=== PATIENT | male | born 1960 | race Caucasian/White ===

== ENCOUNTER 2018-07-18 15:18 | Emergency (ER) | payer SELFPAY ==
[2018-07-18 15:40] LABS: Absolute Lymphocytes (CBC) 0.6 K/uL (0.7-4.9); Absolute Monocytes 1.1 K/uL (0.1-1.3); Absolute Neutrophil 11.9 K/uL (1.8-8.0); Basophils % 0.2 % (0-1.3); Hematocrit 50.7 % (39.6-49.0); Lymphocytes % 4.7 % (15.3-44.8); MPV 9.1 fL (7.6-11.3); Monocytes % 8.2 % (3.3-12.3); RBC Red Blood Cell Count 5.02 M/uL (4.33-5.43)
[2018-07-18] MEDS ORDERED: NA CHLORIDE 0.9% 1,000 ML ONE ×2 (15:44→16:37)
[2018-07-18 15:58] LABS: Potassium 4.2 mmol/L (3.5-5.1)
--- NOTE | 2018-07-18 16:16 | RAD REPORT ---
EXAM DESCRIPTION: CT - Head Brain Wo Cont - 07/18/2018 3:56 pm CLINICAL HISTORY: Alteration of awareness/confusion COMPARISON: None TECHNIQUE: Computed axial tomography of the head was obtained. IV contrast was not requested. All CT scans are performed using dose optimization technique as appropriate and may include automated exposure control or mA/KV adjustment according to patient size. FINDINGS: An intracranial bleed is not seen . The ventricles are normal in caliber. 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 No extra-axial fluid collection is noted. Mild low-density areas within periventricular, deep and sub cortical white matter likely represent ischemic changes secondary to small vessel disease. Fluid within the sinuses/ mastoids is not seen. IMPRESSION: No acute intracranial abnormality is seen. If patient's symptoms persist MRI of the bra in would be recommended.
--- NOTE | 2018-07-18 17:54 | ER ---
Nurse's Notes [facility] Name: Abner Black Age: 57 yrs Sex: Male : 1960 Arrival Date: 07/18/2018 Time: 15:19 Bed 3 Private MD: Diagnosis: Heat exhaustion, unspecified;Dehydration Presentation: 07/18 15:20 Presenting complaint: EMS states: Altered mental status after offshore fishing for hb approx 7 hrs in the heat with minimal oral intake. On scene AOx1, SBP 110s, HT002q, BGL 79. Transition of care: patient was not received from another setting of care. Onset of symptoms was July 18, 2018. Risk Assessment: Do you want to hurt yourself or someone else? Patient reports no desire to harm self or others. Initial Sepsis Screen: Does the patient meet any 2 criteria? No. Patient's initial sepsis screen is negative. Does the patient have a suspected source of infection? No. Patient's initial sepsis screen is negative. Care prior to arrival: ice packs to axilla, groin, back of neck. 15:20 Method Of Arrival: EMS: [facility] hb 15:20 Acuity: BLAKE 2 hb Historical: - Allergies: 15:22 SHELLFISH; hb - Home Meds: 15:22 None [Active]; hb - PMHx: 15:22 None; hb - PSHx: 15:22 None; hb - Immunization history:: Adult Immunizations up to date. - Social history:: Smoking status: Patient uses tobacco products, denies chronic smoking, but will smoke occasionally. - Ebola Screening: : No symptoms or risks identified at this time. - Family history:: not pertinent. - Hospitalizations: : No recent hospitalization is reported. Screenin:35 Abuse screen: Denies threats or abuse. Denies injuries from another. Nutritional hb screening: No deficits noted. Tuberculosis screening: No symptoms or risk factors identified. Fall Risk Total Murphy Fall Scale indicates High Risk Score (45 or more points). Fall prevention measures have been instituted. Side Rails Up X 2 Frequent Obs/Assessments Occuring As available patient and family educated on Fall Prevention Program and Strategies. Assessment: 15:30 General: Appears in no apparent distress. Behavior is calm, cooperative. Pain: Denies hb pain. Neuro: Level of Consciousness is awake, alert, obeys commands, confused, Oriented to person, place. Cardiovascular: Heart tones S1 S2 present Capillary refill < 3 seconds Patient's skin is warm and dry. Respiratory: Airway is patent Respiratory effort is even, unlabored, Respiratory pattern is regular, symmetrical, Breath sounds are clear bilaterally. GI: No signs and/or symptoms were reported involving the gastrointestinal system. : No signs and/or symptoms were reported regarding the genitourinary system. EENT: No signs and/or symptoms were reported regarding the EENT system. Derm: Skin is intact, is healthy with good turgor, Skin is pink, warm \T\ dry. Musculoskeletal: No signs and/or symptoms reported regarding the musculoskeletal system. 16:30 Reassessment: Patient appears in no apparent distress at this time. No changes from previously documented assessment. Patient and/or family updated on plan of care and expected duration. Pain level reassessed. 17:30 Reassessment: Patient appears in no apparent distress at this time. Patient and/or hb family updated on plan of care and expected duration. Pain level reassessed. Patient is alert, oriented x 3, equal unlabored respirations, skin warm/dry/pink. Patient states symptoms have improved. Vital Signs: 15:22 BP 139 / 95; Pulse 98; Resp 17; Temp 98.2; Pulse Ox 100% on R/A; Weight 82.55 kg; hb Height 5 ft. 9 in. (175.26 cm); Pain 0/10; 16:30 BP 128 / 78; Pulse 82; Resp 14; Pulse Ox 100% on R/A; hb 17:30 BP 136 / 86; Pulse 88; Resp 15; Pulse Ox 100% on R/A; hb 15:22 Body Mass Index 26.88 (82.55 kg, 175.26 cm) ED Course: 15:15 Initial lab(s) drawn, by me, held in ED. Inserted saline lock: 20 gauge in right jp3 antecubital area, using aseptic technique. Blood collected. 15:19 Patient arrived in ED. hb 15:22 Triage completed. hb 15:22 Devang Bai MD is Attending Physician. rn 15:22 Arm band placed on right wrist. hb 15:30 Initial lab(s) drawn, by me, sent to lab. [facility] 15:30 Patient has correct armband on for positive identification. Placed in gown. Bed in low hb position. Call light in reach. Side rails up X 1. 15:31 Jayashree Ness, RN is Primary Nurse. hb 15:44 CK Sent. jp3 15:44 Basic Metabolic Panel Sent. jp3 15:44 CBC with Diff Sent. jp3 15:56 CT completed. Patient tolerated procedure well. Patient moved back from CT. mw3 15:56 CT Head Brain wo Cont In Process Unspecified. EDMS 18:06 No provider procedures requiring assistance completed. IV discontinued, intact, hb bleeding controlled, No redness/swelling at site. Pressure dressing applied. Administered Medications: 15:32 Drug: NS 0.9% 1000 ml Route: IV; Rate: 1000 ml; Site: right antecubital; hb 16:25 Follow up: Response: No adverse reaction; IV Status: Completed infusion; IV Intake: hb 1000ml 16:33 Drug: NS 0.9% 1000 ml Route: IV; Rate: 1000 ml; Site: right antecubital; rv 17:35 Follow up: Response: No adverse reaction; IV Status: Completed infusion; IV Intake: hb 1000ml Intake: 16:25 IV: 1000ml; Total: 1000ml. hb 17:35 IV: 1000ml; Total: 2000ml. hb Outcome: 17:53 Discharge ordered by . rn 18:06 Discharged to home ambulatory, with family. hb 18:06 Condition: stable 18:06 Discharge instructions given to patient, Instructed on discharge instructions, follow up and referral plans. Demonstrated understanding of instructions, follow-up care. 18:07 Patient left the ED. hb Signatures: Dispatcher [employer] EDRI Devang Bai MD MD rn Baxter, Heather, RN RN Kaylin Burt mw3 Casey German RN RN Delta Caicedo jp3
--- NOTE | 2018-07-18 17:54 | EDPHYS ---
Physician Documentation [facility] Name: Abner Black Age: 57 yrs Sex: Male : 1960 Arrival Date: 07/18/2018 Time: 15:19 Bed 3 Private MD: ED Physician Devang Bai HPI: 07/18 15:38 This 57 yrs old Male presents to ER via EMS with complaints of Heat Exposure, rn Altered Mental Status. 15:38 The patient presents with confusion, decreased mental status. Onset: The rn symptoms/episode began/occurred at an unknown time. Possible causes: heat. Associated signs and symptoms: Pertinent positives: confusion. Current symptoms: In the emergency department the patient's symptoms have improved, markedly. It is unknown whether or not the patient has had similar symptoms in the past. Patient states fishing on water for 8 hours, was drinking water but ran out, no food, people with him state that when coming back in patient became confused, not acting right, put him in shade and called 911, EMS put ice packs on him and he has slowly improved, they state much improved now compared to when they picked him up. Patient reports felt fine prior to fishing, no trauma, no pain currently. . Historical: - Allergies: 15:22 SHELLFISH; hb - Home Meds: 15:22 None [Active]; hb - PMHx: 15:22 None; hb - PSHx: 15:22 None; hb - Immunization history:: Adult Immunizations up to date. - Social history:: Smoking status: Patient uses tobacco products, denies chronic smoking, but will smoke occasionally. - Ebola Screening: : No symptoms or risks identified at this time. - Family history:: not pertinent. - Hospitalizations: : No recent hospitalization is reported. ROS: 15:38 Constitutional: Negative for fever, chills, and weight loss, Eyes: Negative for injury, rn pain, redness, and discharge, Neck: Negative for injury, pain, and swelling, Cardiovascular: Negative for chest pain, palpitations, and edema, Respiratory: Negative for shortness of breath, cough, wheezing, and pleuritic chest pain, Abdomen/GI: Negative for abdominal pain, nausea, vomiting, diarrhea, and constipation, MS/Extremity: Negative for injury and deformity, Skin: Negative for injury, rash, and discoloration, Neuro: Negative for headache, numbness, tingling, and seizure. Exam: 15:38 Constitutional: This is a well developed, well nourished patient who is awake, alert, rn and in no acute distress. Head/Face: Normocephalic, atraumatic. Flushed/sunburnt face. Eyes: Pupils equal round and reactive to light, extra-ocular motions intact. Lids and lashes normal. Conjunctiva and sclera are non-icteric and not injected. Cornea within normal limits. Periorbital areas with no swelling, redness, or edema. ENT: dry MM Neck: Trachea midline, no thyromegaly or masses palpated, and no cervical lymphadenopathy. Supple, full range of motion without nuchal rigidity, or vertebral point tenderness. No Meningismus. Cardiovascular: tachycardic, regular, no murmur Respiratory: Lungs have equal breath sounds bilaterally, faint wheezing (states smoker). No increased work of breathing, no retractions or nasal flaring. Speaking full sentences Abdomen/GI: soft, non-tender Back: No spinal tenderness. No costovertebral tenderness. Full range of motion. Skin: Warm, dry, and no evidence of cellulitis. MS/ Extremity: Pulses equal, no cyanosis. Neurovascular intact. Full, normal range of motion. Equal circumference. Neuro: Awake and alert, GCS 15, oriented to person, place, year but not month. Cranial nerves II-XII grossly intact. Motor strength 5/5 in all extremities. Sensory grossly intact. Cerebellar exam normal. Vital Signs: 15:22 BP 139 / 95; Pulse 98; Resp 17; Temp 98.2; Pulse Ox 100% on R/A; Weight 82.55 kg; hb Height 5 ft. 9 in. (175.26 cm); Pain 0/10; 16:30 BP 128 / 78; Pulse 82; Resp 14; Pulse Ox 100% on R/A; hb 17:30 BP 136 / 86; Pulse 88; Resp 15; Pulse Ox 100% on R/A; hb 15:22 Body Mass Index 26.88 (82.55 kg, 175.26 cm) hb MDM: 15:22 Patient medically screened. rn 17:51 Differential Diagnosis: electrolyte abnormality, hypoglycemia, volume depletion. Data rn reviewed: vital signs, nurses notes. 17:52 Counseling: I had a detailed discussion with the patient and/or guardian regarding: the rn historical points, exam findings, and any diagnostic results supporting the discharge/admit diagnosis, lab results, radiology results, the need for outpatient follow up, to return to the emergency department if symptoms worsen or persist or if there are any questions or concerns that arise at home. Response to treatment: the patient's symptoms have markedly improved after treatment, the patient's condition has returned to base line, the patient is now symptom free, patient is well hydrated. and as a result, I will discharge patient. Special discussion: I discussed with the patient/guardian in detail that at this point there is no indication for admission to the hospital. It is understood, however, that if the symptoms persist or worsen the patient needs to return immediately for re-evaluation. ED course: Back to baseline, much more alert, now oriented to place/time/month/date/person. Here talking to family. Back to normal. IMproved mentation, is ambulatory without assistance, and normal neuro exam when repeated. Normal ct head. . 07/18 15:23 Order name: CBC with Diff rn 07/18 15:23 Order name: Basic Metabolic Panel; Complete Time: 16:17 rn 08 15:23 Order name: CT Head Brain wo Cont; Complete Time: 16:17 rn 07/18 15:23 Order name: Urine Microscopic Only rn 07/18 15:23 Order name: CK; Complete Time: 16:17 rn 08 17:56 Order name: Urine Dipstick--Ancillary (enter results) eb 07/18 15:23 Order name: IV Start; Complete Time: 15:32 rn 08 15:23 Order name: Urine Dipstick-Ancillary (obtain specimen); Complete Time: 18:27 rn 08 15:23 Order name: EKG; Complete Time: 15:26 rn 08 15:23 Order name: EKG - Nurse/Tech; Complete Time: 15:44 rn Administered Medications: 15:32 Drug: NS 0.9% 1000 ml Route: IV; Rate: 1000 ml; Site: right antecubital; hb 16:25 Follow up: Response: No adverse reaction; IV Status: Completed infusion; IV Intake: hb 1000ml 16:33 Drug: NS 0.9% 1000 ml Route: IV; Rate: 1000 ml; Site: right antecubital; rv 17:35 Follow up: Response: No adverse reaction; IV Status: Completed infusion; IV Intake: hb 1000ml Disposition: 07/18/18 17:53 Discharged to Home. Impression: Heat exhaustion, unspecified, Dehydration. - Condition is Stable. - Discharge Instructions: Dehydration, Adult, Heat Exhaustion Information. - Medication Reconciliation Form, Thank You Letter, Antibiotic Education, Prescription Opioid Use form. - Follow up: Private Physician; When: As needed; Reason: Recheck today's complaints, Re-evaluation by your physician. - Problem is new. - Symptoms have improved. Signatures: Dispatcher [employer] EDMS Devang Bai MD MD rn Jayashree Ness RN RN hb Casey German RN RN rv Corrections: (The following items were deleted from the chart) 18:07 17:53 07/18/2018 17:53 Discharged to Home. Impression: Heat exhaustion, unspecified; hb Dehydration. Condition is Stable. Forms are Medication Reconciliation Form, Thank You Letter, Antibiotic Education, Prescription Opioid Use. Follow up: Private Physician; When: As needed; Reason: Recheck today's complaints, Re-evaluation by your physician. Problem is new. Symptoms have improved. rn
[2018-07-18 18:35] LABS: Urine Blood NEGATIVE (NEG); Urine Glucose NEGATIVE (NEG); Urine Protein NEGATIVE (NEG); Urine Specific Gravity 1.015 (1.005-1.030)
[2018-07-18 19:09] LABS: Urine Bacteria NONE SEEN /HPF (NONE SEEN); Urine Culture Reflex Order NOT NEEDED; Urine RBC NONE SEEN /HPF (NONE SEEN)
[2018-07-18 21:11] LABS: Blood Morphology Comment NOT SEEN (NOT SEEN)
[2018-07-18 21:12] LABS: Platelet Estimate ADEQ; Urine White Blood Cell Casts OK
--- NOTE | 2018-07-19 07:55 | EKG ---
Test Date: 2018-07-18 Test Time: 15:37:54 [employer] Cashier: HB MEASUREMENT RESULTS: Intervals: Rate: 91 DC: 164 QRSD: 82 QT: 370 QTc: 455 [place]: P: 54 DC: 164 QRS: -14 T: 0 INTERPRETIVE STATEMENTS: Normal sinus rhythm Possible Left atrial enlargement Inferior infarct, age undetermined Abnormal ECG No previous ECG available for comparison Electronically Signed On 07-19-18 07:52:56 CDT by Husam Melendez
== END 2018-07-18 18:07 | disposition home or self-care (01) ==
LOC: ER 15:18
DX: T67.5XXA Heat exhaustion, unspecified, initial encounter (principal); E86.0 Dehydration; X30.XXXA Exposure to excessive natural heat, initial encounter; Y93.89 Activity, other specified; Y92.832 Beach as the place of occurrence of the external cause; Y99.8 Other external cause status
CPT/HCPCS: 36415; 70450; 80048; 81003; 81015; 82550; 85025; 93005; 96360; 96361; 99284; J7030